=== PATIENT | female | born 1985 | race Caucasian/White ===

== ENCOUNTER 2025-01-10 07:11 | Outpatient (RCR) | payer BC, SELFPAY | END 2025-01-10 10:30 | disposition home or self-care (01) | LOC: HO.OT 07:11 | PROVIDERS: PCP Nurse Practitioner Family; Visit Provider Internal Medicine Sports Medicine | DX: M25.521 Pain in right elbow (principal) | CPT/HCPCS: 97033; 97110; 97140; 97165 ==